=== PATIENT | female | born 1995 | race Caucasian/White ===

== ENCOUNTER 2016-07-15 21:24 | Emergency (ER) | payer BC, OTHER ==
[~2016-07-15] VITALS: Ht 167.6 cm; Wt 101.5 kg
[2016-07-15 21:26] VITALS: Ht 167.6 cm; Wt 101.5 kg
[2016-07-15] MEDS ORDERED: DIPH25CA6 PO (22:21)
[2016-07-15] MEDS ORDERED: CETI-240 PO (22:21)
[2016-07-15] MEDS ORDERED: DIPHENHYDRAMINE 25 MG CAP PO ONE (22:30)
--- NOTE | 2016-07-15 22:33 | ERD ---
ER Documentation Chief Complaint Date/Time DATE: 07/15/16 TIME: 22:28 Chief Complaint FEVER X 3 DAYS NOW STATES GENERALIZED BODY RASH HPI 21-year-old female with no significant past medical history presenting with a generalized body rash that started today around 3 PM. She states that one week ago she was seen for a "spider bite" with associated infection. She was started on Bactrim which she finished yesterday. She has also had an upper respiratory infection for the past 2 days. She endorses feeling "flushed in her face" but no measured fevers. She denies any use of other medications, lotions, new detergents, or other new medications. She took hydroxyzine prior to arrival with no significant improvement in her rash. She states the rash is not very pruritic. She has no pain associated with it. She has no respiratory distress. She has an itching sensation in her throat, but no sensation of swelling. She denies any known allergies. ROS All systems reviewed and are negative except as per history of present illness. Medications Home Meds Active Scripts Diphenhydramine Hcl (Benadryl) 25 Mg Cap, 25 MG PO Q6 Y for ALLERGIC REACTION, # 30 CAP Prov:RANI BERKOWITZ MD 07/15/16 Cetirizine Hcl* (Cetirizine Hcl*) 10 Mg Tablet, 10 MG PO DAILY, #15 TAB Prov:RANI BERKOWITZ MD 07/15/16 PMhx/Soc Medical and Surgical Hx: pt denies Medical Hx History of Surgery: Yes (right elbow fx) Hx Alcohol Use: Yes (occassional) Hx Substance Use: No Hx Tobacco Use: No Smoking Status: Never smoker FmHx Family History: No diabetes Physical Exam Vitals Vital Signs Date Time Temp Pulse Resp B/P Pulse Ox O2 Delivery O2 Flow Rate FiO2 07/15/16 21:26 98.7 114 20 165/113 98 Physical Exam Const: No apparent distress, nontoxic Head: Atraumatic Eyes: Normal Conjunctiva ENT: Normal External Ears, Nose and Mouth. No oropharyngeal swelling Neck: Full range of motion. No meningismus. Resp: Clear to auscultation bilaterally, no wheezing Cardio: Regular rate and rhythm, no murmurs Abd: Soft, non tender, non distended. Normal bowel sounds Skin: Maculopapular rash scattered on face, trunk, extremities, blanching, no overlying scaling or vesicles. No involvement of mucosal membranes. Back: No midline or flank tenderness Ext: No cyanosis, or edema Neur: Awake and alert Psych: Normal Mood and Affect Results 24 hrs Current Medications Medications (Trade) Dose Ordered Sig/Cal Route PRN Reason Start Time Stop Time Status Last Admin Dose Admin Diphenhydramine HCl (Benadryl) 25 mg ONCE ONCE PO 07/15/16 22:30 07/15/16 22:31 Procedures/MDM Patient is presenting with a generalized rash that is mostly asymptomatic. She has no evidence of anaphylaxis. The differential for her rash includes possible allergic reaction to antibiotic versus other etiology. She may also have a viral exanthem. However at this time, I do not suspect meningococcemia, [place] syndrome or TEN. I recommended the patient stop all medications except the ones I will prescribe her today. We can try to treat this rash is an allergic reaction with Benadryl and Zyrtec. Return precautions were given. I believe the patient could be discharged home with further outpatient follow- up and management if her symptoms do not worsen. Departure Diagnosis: Primary Impression: Rash of entire body Condition: Stable Patient Instructions: Allergic Reaction, Drug, Dermatitis, Non-Specific Referrals: [facility] YOU HAVE RECEIVED A MEDICAL SCREENING EXAM AND THE RESULTS INDICATE THAT YOU DO NOT HAVE A CONDITION THAT REQUIRES URGENT TREATMENT IN THE EMERGENCY DEPARTMENT. FURTHER EVALUATION AND TREATMENT OF YOUR CONDITION CAN WAIT UNTIL YOU ARE SEEN IN YOUR DOCTORS OFFICE WITHIN THE NEXT 1-2 DAYS. IT IS YOUR RESPONSIBILITY TO MAKE AN APPOINTMENT FOR FOLOW-UP CARE. IF YOU HAVE A PRIMARY DOCTOR --you should call your primary doctor and schedule an appointment IF YOU DO NOT HAVE A PRIMARY DOCTOR YOU CAN CALL OUR PHYSICIAN REFERRAL HOTLINE AT IF YOU CAN NOT AFFORD TO SEE A PHYSICIAN YOU CAN CHOSE FROM THE FOLLOWING [facility] [address] [facility] [address] [facility]. [facility] [address] [facility] [address] [facility] [address] [facility]. [facility] [address] Additional Instructions: Return to the ER for any worsening symptoms or if you have any difficulty breathing or you feel your throat swelling. RANI BERKOWITZ MD Jul 15, 2016 22:33
== END 2016-07-15 22:48 | disposition home or self-care (01) ==
LOC: FTE 21:24
DX: R21 Rash and other nonspecific skin eruption (principal)
CPT/HCPCS: 99283